=== PATIENT | male | born 1990 | race Caucasian/White ===

== ENCOUNTER 2017-03-17 14:59 | Outpatient (CLI) | payer OTHER ==
--- NOTE | 2017-03-17 22:25 | RAD ---
THORACIC SPINE TWO VIEWS: Date: 03-17-17 FINDINGS: No fracture, dislocation, or disc space narrowing was appreciated. The endplates appear normal for a ge. The paravertebral soft tissues were unremarkable. IMPRESSION: No acute finding. POS: HOME
== END 2017-03-17 15:00 | disposition home or self-care (01) ==
LOC: BURRAD 14:59
PROVIDERS: ATTEND Family Medicine
DX: M54.6 Pain in thoracic spine (principal)
CPT/HCPCS: 72070